=== PATIENT | female | born 1995 | race African-American/Black ===

== ENCOUNTER 2017-05-19 11:29 | Emergency (ER) | payer OTHER ==
--- NOTE | 2017-05-19 12:31 | ED Physician Documentation ---
PD HPI ABD PAIN - Stated complaint Stated Complaint: ABD PX/12 WEEKS - Chief complaint Chief Complaint: Abd Pain - History obtained from History obtained from: Patient - History of Present Illness Timing - onset: How many minutes ago (30), Today Timing - duration: Minutes (marked pain for couple of minutes without injury nor provocation, then pain lessened to aching pain that has persisted.) Quality: Cramping, Sharp, Pain Location: RUQ, Epigastric Radiation: No: Chest, Lower back, Upper back Improved by: No: Position Worsened by: No: Moving, Breathing, Position Associated symptoms: No: Fever, Nausea, Vomiting, Diarrhea, Constipation, Dysuria, Vaginal bleeding, Vaginal dc Similar symptoms before: Has not had sx before Recently seen: Not recently seen Review of Systems Constitutional: denies: Fever, Chills Nose: denies: Rhinorrhea / runny nose, Congestion Throat: denies: Sore throat Respiratory: denies: Cough GI: denies: Nausea, Vomiting, Diarrhea : denies: Dysuria, Frequency, Discharge Skin: denies: Rash, Lesions Musculoskeletal: denies: Neck pain, Back pain PD PAST MEDICAL HISTORY - Past Medical History Cardiovascular: None Respiratory: None Neuro: None Endocrine/Autoimmune: None GI: None [employer]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 ) : None - Past Surgical History Past Surgical History: No - Present Medications Home Medications: Ambulatory Orders Medication Instructions Recorded Confirmed Pnv No.122/Iron/Folic Acid 1 tab PO DAILY 05/19/17 05/19/17 [ Multi Tablet] - Allergies Allergies/Adverse Reactions: Allergies Allergy/AdvReac Type Severity Reaction Status Date / Time olopatadine HCl * Allergy Rash Verified 05/19/17 11:38 [From Patanol] - Social History Does the pt smoke?: No Smoking Status: Never smoker Does the pt drink ETOH?: No Does the pt have substance abuse?: No PD ED PE NORMAL - Vitals Vital signs reviewed: Yes - General General: Alert and oriented X 3, No acute distress, Well developed/nourished - HEENT HEENT: Pharynx benign - Neck Neck: Supple, no meningeal sign, No adenopathy - Cardiac Cardiac: RRR, No murmur - Respiratory Respiratory: Clear bilaterally - Back Back: No CVA TTP - Derm Derm: Normal color, Warm and dry - Extremities Extremities: Normal ROM s pain, No edema, No calf tenderness / cord - Neuro Neuro: Alert and oriented X 3, No motor deficit, Normal speech Results - Vitals Vitals: Vital Signs - 24 hr 05/19/17 05/19/17 11:34 14:37 Temperature 36.5 C 36.7 C Heart Rate 67 67 Respiratory 14 18 Rate Blood Pressure 108/69 105/70 O2 Saturation 100 100 Oxygen O2 Source Room air - Labs Labs: Laboratory Tests 05/19/17 05/19/17 05/19/17 13:18 13:35 13:35 WBC 9.2 RBC 4.12 L Hgb 13.0 Hct 37.5 MCV 91.0 MCH 31.6 H MCHC 34.8 RDW 12.6 Plt Count 213 MPV 8.9 Neut # 6.3 Lymph # 2.4 Ada # 0.3 Eos # 0.1 Baso # 0.0 Absolute Nucleated RBC 0.01 Nucleated RBCs 0.1 Sodium 138 Potassium 3.5 Chloride 105 Carbon Dioxide 25 Anion Gap 8.0 BUN 8 Creatinine 0.6 Estimated GFR (MDRD) 153 Glucose 85 Calcium 9.5 Total Bilirubin 0.7 AST 20 ALT 13 Alkaline Phosphatase 50 Total Protein 7.7 Albumin 4.4 Globulin 3.3 Albumin/Globulin Ratio 1.3 Lipase 19 L Urine Color YELLOW Urine Clarity HAZY Urine pH 6.5 Ur Specific [place] 1.025 Urine Protein NEGATIVE Urine Glucose (UA) NEGATIVE Urine Ketones TRACE Urine Occult Blood NEGATIVE Urine Nitrite NEGATIVE Urine Bilirubin NEGATIVE Urine Urobilinogen 0.2 (NORMAL) Ur Leukocyte Esterase NEGATIVE Urine RBC 0-5 Urine WBC 0-3 Ur Squamous Epith Cells MOD Squamous H Amorphous Sediment Few Urine Bacteria Few Urine Mucus Marked Strands Ur Microscopic Review INDICATED Urine Culture Comments NOT INDICATED Procedures - Bedside sono Bedside sono by EMP: Showing normal IUP c/w dates, with good FHR. No pelvic free fluid. PD MEDICAL DECISION MAKING - ED course Complexity details: reviewed results, considered differential (will check labs and ultrasound, give gastric meds. Consider gastritis, but no prior symptoms. Could be muscular (higher than round ligament pain and only 12 weeks EGA). Bedside U/S showed normal IUP.), d/w patient Departure - Departure Disposition: 01 Home, Self Care Clinical Impression: Upper abdominal pain Condition: Stable Record reviewed to determine appropriate education?: Yes Instructions: ED Strain Abdominal Muscle, ED Epigastric Pain [facility] Comments: Tylenol 650 mg every 4-6 hours if needed for pain. Your ultrasound and blood tests appear normal. I presume this may be a muscular upper abdominal pain. Recheck with your primary care if not better over the next few days. Discharge Date/Time: 05/19/17 14:37
[2017-05-19] MEDS ORDERED: MAG HYDROX/AL HYDROX/SIMETH 30 ML UDC PO STA (12:57)
[2017-05-19] MEDS ORDERED: ACETAMINOPHEN 325 MG TABLET PO STA (12:57)
[2017-05-19] MEDS ORDERED: MAG HYDROX/AL HYDROX/SIMETH 30 ML UDC ONE (13:10)
[2017-05-19] MEDS ORDERED: ACETAMINOPHEN 325 MG TABLET PO ONE (13:10)
[2017-05-19 13:26] LABS: BILIRUBIN,URINE NEGATIVE (NEGATIVE); PH,URINE 6.5 PH (5.0-7.5)
[2017-05-19 13:28] LABS: UA w/ MICROSCOPIC CHARGE YES
[2017-05-19 13:36] LABS: UR CULTURE IF IND NOT INDICATED; WBC,URINE 0-3 /HPF (0-5)
[2017-05-19 13:48] LABS: BASOPHILS % (AUTO) 0.2 %; EOSINOPHILS # (AUTO) 0.1 10^3/uL (0.0-0.7); EOSINOPHILS % (AUTO) 0.6 %; HCT - HEMATOCRIT 37.5 % (37.0-47.0); LYMPHOCYTES # (AUTO) 2.4 10^3/uL (1.5-3.5); LYMPHOCYTES % (AUTO) 26.6 %; MEAN CORPUSCULAR HEMOGLOBIN 31.6 pg (27.0-31.0); MEAN CORPUSCULAR HGB CONC 34.8 g/dL (32.0-36.0); MEAN PLATELET VOLUME 8.9 fL (7.9-10.8); MONOCYTES # (AUTO) 0.3 10^3/uL (0.0-1.0); MONOCYTES % (AUTO) 3.4 %; NEUTROPHILS # (AUTO) 6.3 10^3/uL (1.5-6.6); NEUTROPHILS % (AUTO) 69.2 %; NUCLEATED RED BLOOD CELLS AUTO 0.1 /100WBC; RED BLOOD COUNT 4.12 10^6/uL (4.20-5.40); RED CELL DISTRIBUTION WIDTH 12.6 % (12.0-15.0); UNCORRECTED WHITE BLOOD COUNT 9.2 x10^3/uL; WHITE BLOOD COUNT 9.2 x10^3/uL (4.8-10.8)
[2017-05-19 13:59] LABS: ALBUMIN/GLOBULIN RATIO 1.3 (1.0-2.2); BILIRUBIN,TOTAL 0.7 mg/dL (0.2-1.0); CALCIUM 9.5 mg/dL (8.5-10.3); CREATININE 0.6 mg/dL (0.4-1.0); POTASSIUM 3.5 mmol/L (3.5-5.0); TOTAL PROTEIN 7.7 g/dL (6.7-8.2)
[2017-05-19 14:37] VITALS: BP 105/70
--- NOTE | 2017-05-19 14:47 | Ultrasound Preliminary Report ---
Exam: US Abdomen Limited IMPRESSION: Normal. No cholelithiasis or cholecystitis. [facility] SITE ID: [id number]
--- NOTE | 2017-05-19 14:49 | Ultrasound Report ---
EXAM: ABDOMEN ULTRASOUND LIMITED, RUQ EXAM DATE: 05/19/2017 02:20 PM. CLINICAL HISTORY: Upper abdominal pain abrupt today; 12 weeks . COMPARISON: None. TECHNIQUE: Real-time scanning was performed with static images obtained. FINDINGS: Liver: Normal in size and echotexture. 12.7 cm. Main portal vein flow: Hepatopetal. Gallbladder: Normal. No stones, wall thickening, or sonographic Garrison's sign. Biliary System: CBD measures 3 mm. No intrahepatic or extrahepatic ductal dilatation. Other: Unremarkable sonographic appearance of the pancreas. Right kidney measures 12.6 cm without hyd ronephrosis. IMPRESSION: Normal. No cholelithiasis or cholecystitis. [facility] Referring Provider Line: [phone] SITE ID: [id number]
== END 2017-05-19 14:37 | disposition home or self-care (01) ==
LOC: ED 11:29
DX: O26.891 Other specified pregnancy related conditions, first trimester (principal); R10.11 Right upper quadrant pain; R10.13 Epigastric pain; Z3A.12 12 weeks gestation of pregnancy
CPT/HCPCS: 36415; 76705; 80053; 81001; 83690; 85025; 99283; A9270; 81003; 87086